=== PATIENT | female | born 1985 | race Caucasian/White ===

== ENCOUNTER 2019-07-10 10:11 | Inpatient (IN) ==
[2019-07-10] MEDS ORDERED: Isovue-370 500 ML BOTTLE IVP ONE (10:25)
[2019-07-10 11:12] LABS: Bilirubin,Urine Negative (Negative); Blood,Urine Negative (Negative); Clarity,Urine Cloudy (Clear); Color,Urine Yellow (Yellow); Glucose,Urine (UA) Normal (Normal); Ketones,Urine Negative (Negative); Leukocyte Esterase,Urine Trace (Negative); Nitrite,Urine Negative (Negative); PH,Urine 6.5 pH Units (5.0-8.0); Protein,Urine Negative (Neg-Trace); Specific Gravity,Urine 1.028 (1.010-1.025); Urobilinogen,Urine Normal (Normal)
[2019-07-10 11:14] LABS: Bacteria,Urine Moderate per hpf (None-Few); Hyaline Casts,Urine None Seen per lpf (None-Few); RBC,Urine 0-3 per hpf (0-3); Squamous Epithelial Cell,Urine Many per lpf (None-Few)
[2019-07-10 11:23] LABS: Amphetamine Screen,Urine Negative ng/mL (Cutoff=1000); Barbiturate Screen,Urine Negative ng/mL (Cutoff=200); Benzodiazepines Screen,Urine Negative ng/mL (Cutoff=200); Cannabinoid Screen,Urine Negative ng/mL (Cutoff = 50); Cocaine Screen,Urine Negative ng/mL (Cutoff= 300); Opiate Screen,Urine Negative ng/mL (Cutoff=300); Phencyclidine Screen,Urine Negative ng/mL (Cutoff=25)
[2019-07-10 11:27] LABS: Basophils # 0.1 K/mcL (0.0-0.2); Basophils % 0.5 %; Eosinophils # 0.1 K/mcL (0.0-0.6); Hematocrit 38.9 % (35.3-44.9); Hemoglobin 12.5 g/dL (11.5-15.4); Immature Granulocytes % 0.3 % (0-4); Lymphocytes # 2.9 K/mcL (0.6-4.6); Lymphocytes % 29.3 %; Mean Corpuscular HGB Conc 32.1 g/dL (31.6-35.5); Mean Corpuscular Hemoglobin 26.1 pg (28.0-33.3); Mean Corpuscular Volume 81.2 fL (83.0-100.0); Mean Platelet Volume 9.4 fL (9.4-12.4); Monocytes # 0.6 K/mcL (0.0-1.3); Monocytes % 6.2 %; Neutrophils # 6.2 K/mcL (1.6-8.9); Platelet Count 307 K/mcL (140-400); Red Blood Count 4.79 M/mcL (3.82-4.97); Segmented Neutrophils % 62.7 %; White Blood Count 9.9 K/mcL (4.3-11.1)
[2019-07-10 11:51] LABS: Alanine Aminotransferase 8 Units/L (7-52); Albumin 4.3 g/dL (3.5-5.7); Alkaline Phosphatase 73 Units/L (34-104); Aspartate Amino Transferase 11 Units/L (13-39); BUN/Creatinine Ratio 21 (6-26); Bilirubin,Total 0.2 mg/dL (0.3-1.0); Blood Urea Nitrogen 16 mg/dL (6-20); Calcium 9.9 mg/dL (8.6-10.3); Carbon Dioxide 31 mEq/L (23-29); Chloride 104 mEq/L (98-107); Globulin 4.3 g/dL (2.4-3.5); Glucose 101 mg/dL (70-105); Osmolality,Calculated 291 (280-300); Potassium 4.1 mEq/L (3.5-5.1); Sodium 140 mEq/L (136-145); Total Protein 8.6 g/dL (6.4-8.9); eGFR For African Americans > 60 (> 60); eGFR For Non-African Americans > 60 (> 60)
[2019-07-10] MEDS ORDERED: Ibuprofen 600 MG TABLET PO ONE (13:08)
[2019-07-10] MEDS ORDERED: Piperacillin/Tazobactam 3.375 GM in 0.9 % Sodium Chloride Mini Bag 100 ML IVPB ONE (13:27)
[2019-07-10] MEDS ORDERED: Naloxone 0.4 MG/ML INJ IVP PRN (14:49)
[2019-07-10] MEDS ORDERED: Gadolinium Contrast Agent (WT Based) IV PRN (15:11)
[2019-07-10 15:34] LABS: C-Reactive Protein 9 mg/L (Less than 10)
[2019-07-10] MEDS: Ketorolac 30 MG/ML VIAL IVP PRN (18:15)
[2019-07-10] MEDS: Nicotine 21 MG PATCH.TD24 TD SCH (19:45)
[2019-07-10] MEDS: Acetaminophen 325 MG TABLET PO PRN (20:27)
[2019-07-11] MEDS: Ketorolac 30 MG/ML VIAL IVP PRN ×3 (00:24→22:41)
[2019-07-11 02:14] LABS: Basophils # 0.1 K/mcL (0.0-0.2); Basophils % 0.5 %; Eosinophils # 0.2 K/mcL (0.0-0.6); Eosinophils % 2.5 %; Hematocrit 35.8 % (35.3-44.9); Hemoglobin 11.6 g/dL (11.5-15.4); Immature Granulocytes % 0.2 % (0-4); Lymphocytes # 4.2 K/mcL (0.6-4.6); Lymphocytes % 45.7 %; Mean Corpuscular HGB Conc 32.4 g/dL (31.6-35.5); Mean Corpuscular Hemoglobin 26.1 pg (28.0-33.3); Mean Corpuscular Volume 80.4 fL (83.0-100.0); Mean Platelet Volume 9.8 fL (9.4-12.4); Monocytes # 0.7 K/mcL (0.0-1.3); Monocytes % 7.5 %; Platelet Count 287 K/mcL (140-400); Red Blood Count 4.45 M/mcL (3.82-4.97); Red Cell Distribution Width 17.1 % (11.5-14.5); Segmented Neutrophils % 43.6 %; White Blood Count 9.1 K/mcL (4.3-11.1)
[2019-07-11] MEDS: Nicotine 21 MG PATCH.TD24 TD SCH (09:26)
[2019-07-11] MEDS ORDERED: *HR* Midazolam HCl 2 MG/2 ML VIAL IVP ONE (09:58)
[2019-07-11] MEDS ORDERED: *HR* FentaNYL (PF) 100 MCG/2 ML VIAL IVP ONE (09:59)
[2019-07-11] MEDS ORDERED: 0.9 % Sodium Chloride 500 ML ONE (10:10)
[2019-07-11] MEDS: Acetaminophen 325 MG TABLET PO PRN (16:53)
[2019-07-11] MEDS ORDERED: Nicotine 2 MG GUM BC PRN (16:53)
[2019-07-11] MEDS ORDERED: hydrOXYzine pamoate 25 MG CAPSULE PO PRN (17:08)
[2019-07-11 22:42] VITALS: BP 109/66
[2019-07-11] MEDS ORDERED: FLU Vac QV 19-20 (6Month+)/PF 0.5 ML SYRINGE IM ONE (23:14)
== END 2019-07-12 00:25 | disposition other institution (70) | DRG 344 ==
LOC: EMEROOARM 10:11 → 3NENU 10:11 → SUATTDRO 14:19 → 3NENU 15:05
PROVIDERS: ADMIT Internal Medicine; ATTEND Internal Medicine
PROC: IRDRAIN (2019-07-11 12:00)